=== PATIENT | female | born 1985 | race Caucasian/White ===

== ENCOUNTER 2017-04-03 07:30 | Inpatient (IN) | payer OTHER ==
--- NOTE | 2017-04-02 14:26 | GHP ---
[f rep st] PREOP HISTORY AND PHYSICAL DATE OF PLANNED PROCEDURE: 04/20/2017 PLANNED PROCEDURE: Primary low transverse section for breech presentation. INDICATIONS: The patient is a 32-year-old, 2, para 0-0-1-0, who will be 39+ weeks gestation. She has a baby known to be in the breech presentation. She has been doing chiropractic and hydrating well to try to have the baby flip. We had a long discussion about external cephalic version, pros and cons, and risks and benefits. Patient has decided to decline external cephalic version, and would like to proceed with a primary low transverse section. Risks and benefits of this have been extensively reviewed with the patient, and the patient has been properly consented. 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 MEDICATIONS: Synthroid, vitamins, iron. SURGICAL HISTORY: [place] tooth extraction and left knee meniscus surgery. ALLERGIES: Sulfa, which causes hives. 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 She is . She denies tobacco, alcohol, or drug use. FAMILY MEDICAL HISTORY: Noncontributory. 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 Periods every 30 days, lasting 4 days. She is a 2, para 0-0-1-0. In 03/2016 she had a spontaneous . After a missed AB was diagnosed, she was treated with Cytotec. Current has been uncomplicated, with the exception of baby being in breech presentation. The patient does have a remote history of abnormal Pap smears. Repeat Pap smears have all been negative. She has not had any procedures done on her cervix. REVIEW OF SYSTEMS: 10-point review of systems is negative. There is positive movement. No loss of fluid or contractions, she denies any headaches or changes in vision. PHYSICAL EXAM: VITAL SIGNS: Stable. GENERAL APPEARANCE: Alert and oriented x3. PSYCHIATRIC: She has appropriate affect. HEART: Rate is regular, regular. LUNGS are clear to auscultation bilaterally. Her NECK is mobile and supple. ABDOMEN: Gravid, nondistended, nontender. No other organomegaly is noted. EXTREMITIES: Reveal no calf tenderness or edema. Baby is noted to be in the breech presentation by ultrasound. A cervical exam was deferred. status is reassuring. LABS: Blood type A positive, antibody screen negative. Rubella immune. GBS positive. HBsAg negative. HIV negative. Her 50 g glucose was 84. She had a negative quad screen. ASSESSMENT AND PLAN: 32-year-old, 2, para 0-0-1-0, who will be 39+ weeks gestation, with baby known to be in the breech presentation. She will undergo a primary low transverse section. The patient has been properly consented. /[id number]/MODL MTDD
[2017-04-20] MEDS ORDERED: ceFAZolin 2 GM/DEXTROSE 100 ML IV ONE (06:00)
[2017-04-20] MEDS ORDERED: LR 1,000 ML IV SCH (06:00)
[2017-04-20] MEDS ORDERED: LR 500 ML IV ONE (06:00)
[2017-04-20] MEDS ORDERED: CITRIC ACID/SODIUM CITRATE 30 ML UDCUP PO ONE (06:00)
[2017-04-20 06:29] LABS: % IMMATURE GRANULYOCYTES 0.5 % (0.0-1.1); ABSOLUTE IMMATURE GRANULOCYTES 0.04 10^3/uL (0.00-0.10); ADD DIFF? NO; ADD MORPH? NO; ADD SCAN? NO; ATYPICAL LYMPHOCYTE FLAG 0 (0-99); FRAGMENT RBC FLAG 0 (0-99); HEMATOCRIT 38.6 % (38.0-47.0); HEMOGLOBIN 13.8 g/dL (12.6-16.3); LEFT SHIFT FLG 0 (0-99); LIPEMIA HEMOLYSIS FLAG 90 (0-99); MEAN CELL HEMOGLOBIN 32.1 pg (27.9-34.1); MEAN CELL HEMOGLOBIN CONCENTR. 35.8 g/dL (32.4-36.7); MEAN CELL VOLUME 89.8 fL (81.5-99.8); PLATELET CLUMPS FLAG 0 (0-99); PLATELET COUNT 192 10^3/uL (150-400); RED CELL DISTRIBUTION WIDTH 12.4 % (11.5-15.2)
[2017-04-20] MEDS ORDERED: LIDOCAINE 1% 300 MG/30 ML SDV ONE (07:32)
[2017-04-20] MEDS ORDERED: OXYTOCIN 10 UNIT/ML VIAL ONE (07:33)
[2017-04-20] MEDS ORDERED: AMMONIA AROMATIC 1 EACH AMP IH ONE (07:33)
[2017-04-20] MEDS ORDERED: MISOPROSTOL 200 MCG TAB ONE (07:33)
[2017-04-20] MEDS ORDERED: OXYTOCIN 100 UNITS/10 ML VIAL ONE (07:34)
[2017-04-20] MEDS ORDERED: BUPIVACAINE/DEXTROSE 7.5MG/ML 2 ML SPINAL AMP SP ONE (07:34)
[2017-04-20] MEDS ORDERED: METOCLOPRAMIDE 10 MG/2 ML VIAL ONE (07:34)
[2017-04-20] MEDS ORDERED: fentaNYL 100 MCG/2 ML INJ ONE (08:55)
[2017-04-20] MEDS ORDERED: PHENYLEPHRINE HCL 100 MCG/ML SYR IVP PRN (09:30)
[2017-04-20] MEDS ORDERED: ONDANSETRON 4 MG/2 ML VIAL IVP PRN ×2 (09:30→09:36)
[2017-04-20] MEDS ORDERED: fentaNYL 100 MCG/2 ML INJ IVP PRN (09:30)
[2017-04-20] MEDS ORDERED: MEPERIDINE 25 MG/ML SYR IVP PRN (09:30)
[2017-04-20] MEDS ORDERED: LACTULOSE 20 GM/30 ML UDCUP PO PRN (09:31)
[2017-04-20] MEDS ORDERED: DOCUSATE SODIUM 100 MG CAP PO PRN (09:31)
[2017-04-20] MEDS ORDERED: POLYETHYLENE GLYCOL 3350 17 GM PKT PO PRN (09:31)
[2017-04-20] MEDS ORDERED: MAGNESIUM HYDROXIDE 30 ML UDCUP PO PRN (09:31)
[2017-04-20] MEDS ORDERED: BISACODYL 10 MG SUPP PR PRN (09:31)
--- NOTE | 2017-04-20 09:31 | POSTANESTH ---
Post Anesthetic Evaluation Cardiovascular Status: Normal, Stable Respiratory Status: Normal, Stable Level of Consciousness/Mental Status: Can Participate in Eval Pain Control: Adequate, Prn Tx Ordered Nausea/Vomiting Control: Adequate, Prn Tx Ordered Complications Possibly Related to Anesthesia: None Noted
--- NOTE | 2017-04-20 09:44 | OBGCSDC ---
General Delivery Information - General Info : 2 Para: 0 Abortions: 1 Delivery Physician/CNM: Claritza Saavedra Stud Master/Mistress: Izabella Gillespie Admission Date: 04/20/17 Labs: Patient ABO/Rh A POSITIVE 04/20/17 06:15 Hct 38.6 % (38.0-47.0) 04/20/17 06:15 - Delivery Number of Prior Sections: 0 Indications for Current Section: Breech Type: Primary Surgical Procedures: Scheduled Intra-op Complications: None EBL: 700 L&D Analgesia/Anesthesia Type: Spinal - Hospital Course Antepartum: declined verify negative quad screen. baby breech. declined ecv. Intrapartum: uncomplicated section. Data Monique Delivery Date: 04/20/17 Delivery Time: 08:30 LIZZETTE: 04/24/17 Gestational Age: 39 week(s) and 3 day(s) Sex of Infant: Male Score (1 Min): 9 Score (5 Min): 9
--- NOTE | 2017-04-20 09:53 | OBDEL ---
Info Type: Primary GBS+: No Vaginal Delivery - Labor and Delivery EBL: 700 Operative Report - Delivery Pre-op Diagnoses: IUP 39 3/7 weeks, breech, declined ECV Post-op Diagnoses: same and preop Nulliparous Prior to Delivery: Yes Presentation at Delivery: Breech Procedure: Scheduled, Low Transverse Surgeon: lCaritza Saavedra Assembler Final: Izabella Gillespie Anesthesiologist: Barron Mosley L&D Analgesia/Anesthesia Type: Spinal Complications: None EBL: 700 [place] Data Monique Delivery Date: 04/20/17 Delivery Time: 08:30 LIZZETTE: 04/24/17 Gestational Age: 39 week(s) and 3 day(s) Sex of : Male Score (1 Min): 9 Score (5 Min): 9 ICD10 Worksheet Patient Problems: Problems Problem Status Onset Breech presentation Acute Breech Acute delivery delivered Acute
[2017-04-20] MEDS ORDERED: OXYTOCIN/RINGERS LACTATE 1,000 ML IV SCH (10:00)
[2017-04-20] MEDS: KETOROLAC 30 MG/1 ML SDV IVP SCH ×3 (10:05→22:37)
--- NOTE | 2017-04-20 11:19 | GOP ---
[f rep st] OPERATIVE REPORT DATE OF OPERATION: 04/20/2017 SURGEON: Claritza Saavedra DO DATABASE COORDINATOR: SEBASTIAN Martin. ANESTHESIA: Spinal with intrathecal morphine. ANESTHESIOLOGIST: Barron Mosley. PREOPERATIVE DIAGNOSIS: 1. Intrauterine , at 39-3/7 weeks gestation. 2. Breech presentation, declined external cephalic version. POSTOPERATIVE DIAGNOSIS: 1. Intrauterine , at 39-3/7 weeks gestation. 2. Breech presentation, declined external cephalic version. PROCEDURE PERFORMED: Primary low transverse section. FINDINGS: 1. Viable male in the kerry breech presentation, delivered at 8:30 a.m. Apgars are 9 and 9. 2. Intact placenta with 3-vessel cord. 3. Normal ovaries, uterus, and tubes. ESTIMATED BLOOD LOSS: 700 cc. INDICATIONS: Patient is a 32-year-old 2, para 0-0-1-0 who is 39-3/7 weeks' gestation. She is known to have the baby be in breech presentation for the last several weeks and has declined an e xternal cephalic version due to borderline amniotic fluid levels. She elected to proceed with a [facility] low transverse section. Risks and benefits and have been extensively reviewed with th e patient, and the patient has been properly consented. DESCRIPTION OF PROCEDURE: Patient was taken to the operating room with intravenous fluids in place. She was given 2 g of Ancef intravenously. She was then placed on the operating room table, where spinal anesthesia was obtained. She was then repositioned into the dorsal supine position, and a Fo lidia catheter was placed. Venodynes were placed on her lower extremities. She was then prepped and draped in normal sterile fashion. Anesthesia was assessed and found to be adequate. A Pfannenstiel skin incision was then made 2 fingerbreadths above the pubic symphysis. The incision was then thomas ied through to the underlying layer of fascia with the Bovie. The fascia was then nicked in the mid line, and the fascial incision was extended laterally. The superior aspect of the fascial incision was then grasped with a Heriberto, tented up, and the underlying rectus muscle dissected off bluntly wi th the Bovie. Attention was then turned to the inferior aspect of the fascial incision which, in a similar fashion, was grasped with a Heriberto, tented up, and the underlying rectus muscle dissected of f bluntly with the Bovie. The rectus muscle was then in the midline. The peritoneum was then identified, tented up, and entered sharply with the Metzenbaum scissors. The incision was exte nded superiorly and inferiorly, with excellent visualization of the bladder. The bladder blade was then inserted. The vesicouterine peritoneum was identified, tented up, and entered sharply with the Metzenbaum scissors. The incision was extended laterally, and the bladder flap was created digital ly. The bladder blade was then reinserted. The uterus was then incised in a low-transverse fashion with a scalpel. Clear fluid was noted, and the uterine incision was extended laterally. The infan t's buttocks were the presenting part. The infant's buttocks were then delivered through the incisi on. The body was rotated, the arms were delivered, and the head was delivered without difficulty. Delayed cord clamping for 1 minute was performed. Cord was then clamped x2 and cut. Cord blood was obtained, and the was handed off to a waiting nurse practitioner, where the baby wa s then placed skin to skin. The intact placenta with 3-vessel cord delivered without difficulty. P itocin was then started. The uterus was then exteriorized and cleared of all clots and debris, and the uterine incision was then closed with 0 Vicryl in a running locked fashion. A second 0 Vicryl s titch was used to imbricate the uterine incision. Hemostasis was assured. Ovaries, uterus, and tub es were unremarkable. The uterus was then returned to the patient's abdomen, and the bladder blade was then reinserted. Several small areas of bleeding were noted, and an 0 Vicryl stitch was used to achieve hemostasis. The gutters were cleared of all clots and debris, and the hysterotomy remained hemostatic. Peritoneum was reapproximated with 3-0 Vicryl in a running fashion, rectus muscles nithya pproximated with 2-0 Vicryl in a running fashion. Fascia was closed with 0 Vicryl in a running fash ion. Rony's tissue was reapproximated with 2-0 Vicryl in a running fashion. Subcuticular tissue was reapproximated with 3-0 Vicryl in a running fashion. The skin was then closed with rosina. Sp onge, lap, and needle count were correct x2. Patient was transported to recovery room in stable con dition. /[id number]/MODL
--- NOTE | 2017-04-20 20:46 | OBPP ---
Progress Note Assessment/Plan: Assessment: pod#0 s/p PLTCS for breech breast feeding uncomplicated post operative and post course Plan: routine post and post operative care 04/20/17 20:44 Subjective: patient is doing well. pain is well controlled. working on breast feeding. nausea resolved. denies headache and changes in vision. tolerating liquids. Objective: 04/20/17 06:15 Patient ABO/Rh A POSITIVE 04/20/17 06:15 Temp Pulse Resp BP Pulse Ox 36.3 C 78 16 97/60 L 99 04/20/17 16:00 04/20/17 17:00 04/20/17 17:00 04/20/17 16:00 04/20/17 17:00 Physical Exam - Physical Exam General Appearance: WD/WN, alert, no apparent distress Neck: non-tender, full range of motion Respiratory: chest non-tender, lungs clear, normal breath sounds Cardiac/Chest: normal peripheral pulses, regular rate, rhythm Extremities: normal range of motion, non-tender, normal inspection, normal capillary refill Skin: normal color, warm/dry Neuro/Psych: no motor/sensory deficits, alert, normal mood/affect, oriented x 3
[2017-04-20] MEDS: SENNOSIDES/DOCUSATE SODIUM TAB PO SCH (22:37)
[2017-04-21] MEDS: KETOROLAC 30 MG/1 ML SDV IVP SCH (04:38)
[2017-04-21] MEDS: LEVOTHYROXINE 75 MCG TAB PO SCH (04:38)
[2017-04-21] MEDS: HYDROCODONE/APAP 5/325 TAB PO PRN ×4 (09:13→21:29)
[2017-04-21] MEDS: SENNOSIDES/DOCUSATE SODIUM TAB PO SCH ×2 (09:14→20:57)
[2017-04-21] MEDS: SIMETHICONE 80 MG TAB CHEW PO PRN (09:14)
[2017-04-21] MEDS: IBUPROFEN 600 MG TAB PO PRN (11:28)
--- NOTE | 2017-04-21 12:30 | OBPP ---
Progress Note Assessment/Plan: Assessment:pain well managed incision approximated, tender, no redness, no warmth to the site + void + gas well ff@u scant rubra lochia nipples intact anemic Plan:po day 1 expectant management 04/21/17 12:27 Subjective: Denies pain , voiding well, + gas, well. Objective: 04/21/17 05:00 Patient ABO/Rh A POSITIVE 04/20/17 06:15 Temp Pulse Resp BP Pulse Ox 37.1 C 79 18 104/61 96 04/21/17 08:57 04/21/17 08:57 04/21/17 08:57 04/21/17 08:57 04/21/17 08:57 Uterine Position/Fundal Height: At Umbilicus Uterine Tone: Firm Physical Exam - Physical Exam General Appearance: WD/WN, alert, no apparent distress Respiratory: chest non-tender, lungs clear, normal breath sounds Cardiac/Chest: regular rate, rhythm Abdomen: normal bowel sounds Extremities: normal range of motion, León's sign (negative bilaterlly) DTR- Lower Extremities: Knee (R): 1+, Knee (L): 1+ (no clonus) Skin: normal color, warm/dry Neuro/Psych: no motor/sensory deficits, alert, normal mood/affect, oriented x 3
[2017-04-21] MEDS: IRON POLYSAC/IRON HEME 28 MG TAB PO SCH (20:57)
[2017-04-22] MEDS: IBUPROFEN 600 MG TAB PO PRN ×4 (00:31→21:04)
[2017-04-22] MEDS: HYDROCODONE/APAP 5/325 TAB PO PRN ×6 (01:25→23:28)
[2017-04-22] MEDS: LEVOTHYROXINE 75 MCG TAB PO SCH (05:21)
[2017-04-22] MEDS: IRON POLYSAC/IRON HEME 28 MG TAB PO SCH ×2 (09:20→21:04)
[2017-04-22] MEDS: SENNOSIDES/DOCUSATE SODIUM TAB PO SCH ×2 (09:20→21:04)
[2017-04-22] MEDS: SIMETHICONE 80 MG TAB CHEW PO PRN (09:20)
--- NOTE | 2017-04-22 13:11 | OBPP ---
Progress Note Assessment/Plan: Assessment: pod#2 s/p PLTCS for breech breast feeding uncomplicated post operative and post course anemia Plan: routine post and post operative care iron 04/22/17 13:10 Subjective: patient is doing well. pain is well controlled. normal lochia. passing gas. no bowel movement yet. voiding without difficulty. denies headache and changes in vision. ready to go home tomorrow. Objective: 04/21/17 05:00 Patient ABO/Rh A POSITIVE 04/20/17 06:15 Temp Pulse Resp BP Pulse Ox 36.1 C 68 16 118/72 97 04/22/17 01:28 04/22/17 01:28 04/21/17 21:00 04/22/17 01:28 04/22/17 01:28 Physical Exam - Physical Exam General Appearance: WD/WN, alert, no apparent distress Neck: non-tender, full range of motion Respiratory: chest non-tender, lungs clear, normal breath sounds Cardiac/Chest: normal peripheral pulses, regular rate, rhythm Abdomen: normal bowel sounds, hypoactive bowel sounds, non-tender Extremities: normal range of motion, non-tender, normal inspection, normal capillary refill Skin: normal color, warm/dry, other (incision clean dry and intact. rosina in place) Neuro/Psych: no motor/sensory deficits, alert, normal mood/affect, oriented x 3
[2017-04-23] MEDS: IBUPROFEN 600 MG TAB PO PRN ×2 (03:17→12:45)
[2017-04-23] MEDS: HYDROCODONE/APAP 5/325 TAB PO PRN ×4 (03:19→15:36)
[2017-04-23] MEDS: LEVOTHYROXINE 75 MCG TAB PO SCH (05:59)
[2017-04-23] MEDS: SENNOSIDES/DOCUSATE SODIUM TAB PO SCH (08:17)
[2017-04-23] MEDS: IRON POLYSAC/IRON HEME 28 MG TAB PO SCH (08:17)
[2017-04-23 08:58] VITALS: BP 108/71; PULSE 65; RESP 20; TEMP 97; O2SAT 95
--- NOTE | 2017-04-23 10:43 | OBPP ---
Progress Note Assessment/Plan: Assessment:pain well managed incision approximated, tender, no redness, no warmth to the site / rosina out today before dischagre + void + gas well ff@u scant rubra lochia nipples intact anemic Plan:discharge to home with instructions pain management, pelvic rest, rest, depression, ss infection, exercise, walking, contraception, water intake, , fu 2 weeks 4 weeks and 6 weeks in the office verbalized understanding of all of the above 04/21/17 12:27 04/23/17 10:41 Subjective: Doing well denies difficulties ready to go home today. Objective: 04/21/17 05:00 Patient ABO/Rh A POSITIVE 04/20/17 06:15 Temp Pulse Resp BP Pulse Ox 36.1 C 65 20 108/71 95 04/23/17 08:00 04/23/17 08:00 04/23/17 08:00 04/23/17 08:00 04/23/17 08:00 Uterine Position/Fundal Height: At Umbilicus Uterine Tone: Firm Physical Exam - Physical Exam General Appearance: WD/WN, alert, no apparent distress Respiratory: chest non-tender, lungs clear, normal breath sounds Cardiac/Chest: regular rate, rhythm Abdomen: normal bowel sounds Extremities: León's sign (negative bilaterally) DTR- Lower Extremities: Knee (R): 1+, Knee (L): 1+ (no clonus) Skin: normal color, warm/dry Neuro/Psych: no motor/sensory deficits, alert, normal mood/affect, oriented x 3
== END 2017-04-23 15:45 | disposition home or self-care (01) | DRG 766 ==
LOC: FLD 04-20 05:37 → PREOBSVTOIN 04-20 05:47 → FOB 04-20 11:54 → EDSTATUS 04-20 12:00
PROVIDERS: ADMIT Obstetrics & Gynecology; ATTEND Obstetrics & Gynecology
PROC: 10D00Z1 Extraction of Products of Conception, Low, Open Approach (ICD-10-PCS; principal; 2017-04-20)
DX: O32.1XX0 Maternal care for breech presentation, not applicable or unspecified (principal); O99.283 Endocrine, nutritional and metabolic diseases complicating pregnancy, third trimester; E03.9 Hypothyroidism, unspecified; O99.89 Other specified diseases and conditions complicating pregnancy, childbirth and the puerperium; M51.36 Other intervertebral disc degeneration, lumbar region; Z3A.39 39 weeks gestation of pregnancy; Z37.0 Single live birth
CPT/HCPCS: J0690; J1885; J2590; J2765; J3010

== ENCOUNTER → 2017-05-01 | Outpatient (CLI) | payer OTHER | LOC: FLACT 12:37 | PROVIDERS: ATTEND Obstetrics & Gynecology | DX: O92.79 Other disorders of lactation (principal) | CPT/HCPCS: G0463 ==